=== PATIENT | male | born 1985 | race Two or more races ===

== ENCOUNTER 2025-01-10 15:23 | Emergency (ER) | payer MEDICARE, MEDICAID, SELFPAY ==
[2025-01-10 15:43] VITALS: BP 109/68; PULSE 66; RESP 18; TEMP 37.1; O2SAT 97
--- NOTE | 2025-01-10 16:03 | XR_ITS ---
Examination: CT brain head without contrast. 2-D sagittal coronal reconstructions Date and time of exam:January 10, 2025 1609 hours INDICATIONS: Onset severe head pain today CTDI: vol (mGy):54.7 DLP: (mGycm):1144 Technique: Multiple CT axial sections of the brain have been obtained, 5 mm slice thickness. Contrast has not been administered. 2-D sagittal, coronal reconstructions have been obtained Low dose protocols were performed. One or more of the following dose reduction techniques were used; automated exposure control, adjustment of the mA and/or KV according to patient size, use of iterative reconstruction technique. Findings: No significant ventricular enlargement. Intra-axial or extra-axial hemorrhage density is not seen. No mass effect or midline shift Basal cisterns are not remarkable. Fourth ventricle is midline. Cranial vault intact. Impression: Negative for acute hemorrhage, mass effect or midline shift Advise clinical correlation and follow up accordingly
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
== END 2025-01-10 21:11 | disposition home or self-care (01) ==
LOC: SERX 20:14
PROVIDERS: Emergency Provider Emergency Medicine
DX: R51.9 Headache, unspecified (principal)
CPT/HCPCS: 70450; 99284